=== PATIENT | female | born 1985 | race African-American/Black ===

== ENCOUNTER 2018-10-25 01:08 | Emergency (ER) | payer OTHER ==
[2018-10-25 01:36] VITALS: BMI 33.5
[2018-10-25 01:47] LABS: BASO % 1.3 % (0-2.0); EOS % 2.7 % (0-4.5); HEMATOCRIT 39.2 % (32.4-45.2); HEMOGLOBIN 12.3 GM/dL (10.7-15.3); LYMPH % 28.9 % (8-40); MCH 24.7 pg (25.7-33.7); MCHC 31.3 g/dl (32.0-36.0); MEAN PLT VOLUME 8.3 fl (7.5-11.1); MONO % 6.3 % (3.8-10.2); NEUT % 60.8 % (42.8-82.8); PLATELET COUNT 271 K/MM3 (134-434); RBC 4.97 M/mm3 (3.60-5.2); RDW 17.3 % (11.6-15.6); WHITE BLOOD COUNT 9.2 K/mm3 (4.0-10.0)
[2018-10-25 02:26] LABS: ALBUMIN 3.5 g/dl (3.4-5.0); ALK PHOS 120 U/L (45-117); ANION GAP 10 MMOL/L (8-16); BILIRUBIN,TOTAL 0.1 mg/dL (0.2-1); BLOOD UREA NITROGEN 13 mg/dL (7-18); CALCIUM 9.4 mg/dL (8.5-10.1); CHLORIDE 104 mmol/L (98-107); CO2 22 mmol/L (21-32); CREATININE 0.8 mg/dL (0.55-1.3); GLUCOSE,RANDOM 110 mg/dL (74-106); POTASSIUM 3.8 mmol/L (3.5-5.1); SGOT/AST 16 U/L (15-37); SGPT/ALT 18 U/L (13-61); SODIUM 137 mmol/L (136-145)
--- NOTE | 2018-10-25 02:32 | PDOC ---
History of Present Illness - General Chief Complaint: Pain Stated Complaint: 7 WEEKS ABD PAIN Time Seen by Provider: 10/25/18 01:20 - History of Present Illness Initial Comments: 10/25/18 02:26 last menstrual period August no official ultrasound this presents to the ED with 2 week history of diffuse abdominal discomfort. Patient went to her doctor's office last week but was unable to obtain an ultrasound and was told that if the pain worsens to come to the emergency department No fever no nausea no vomiting pain is intermittent comes and goes was worse this evening Is also having some mild vaginal spotting intermittent Past History - Past Medical History Allergies/Adverse Reactions: Allergies Allergy/AdvReac Type Severity Reaction Status Date / Time No Known Allergies Allergy Verified 08/30/16 20:51 Home Medications: Ambulatory Orders Hydrocodone/Ibuprofen [Vicoprofen 200-7.5 mg Tab] 1 each PO Q6H #12 tablet 09/25 Ibuprofen [Motrin -] 800 mg PO TID #30 tablet 10/27/15 Cephalexin [Keflex] 500 mg PO BID #20 capsule 05/24/16 Famotidine [Pepcid -] 20 mg PO DAILY #30 tablet 05/24/16 Acetaminophen W/ Codeine #3 [Tylenol # 3 -] 1 - 2 tab PO Q4H PRN #14 tablet MDD 8 08/18/16 Ketorolac Tromethamine [Toradol] 10 mg PO TID PRN #21 tablet 08/18/16 Anemia: Yes COPD: No CHF: No - Surgical History Orthopedic Surgery: Yes (right femur Aug 2014/tripped and fell) - Reproductive History Is Patient Now?: Yes (#): 5 Para: 2 - Immunization History Immunization Up to Date: Yes - Suicide/Smoking/Psychosocial Hx Smoking Status: No Smoking History: Never smoked Have you smoked in the past 12 months: No Number of Cigarettes Smoked Daily: 0 Information on smoking cessation initiated: No Hx Alcohol Use: No Drug/Substance Use Hx: No Substance Use Type: None Review of Systems - Review of Systems Comments:: 10/25/18 02:27 ROS: A complete review of 10 out of 10 review of systems is taken and is negative apart from what is previously mentioned below and in the HPI. *Physical Exam - Vital Signs Last Vital Signs Temp Pulse Resp BP Pulse Ox 98.3 F 83 16 121/83 100 10/25/18 01:20 10/25/18 01:20 10/25/18 01:20 10/25/18 01:20 10/25/18 01:20 - Physical Exam Comments: 10/25/18 02:27 Vitals: Triage Vital signs reviewed General Appearance: no acute distress, well nourished well developed, Head: Atraumatic, Neck: Supple;No Nucal rigidity Chest Wall: Nontender Cardiac: Regular rate and rhythym, no murmurs, no rubs, no gallops, Lungs: Clear to auscultation bilateral, good air movement bilaterally, Abdomen: Soft, non distended, normal bowel sounds, diffuse non localizing tenderness to palpation Genitourinary: Diffusely tender vaginal wall and cervix, some discharge white, culture sent Rectal: Exam deferred Extremities: Full range of motion to all extremities, no cyanosis, clubbing, or edema Skin: Warm and dry, no rashes or lesions, no rash, no petechiae Psych: normal mood, normal affect Moderate Sedation - Procedure Monitoring Vital Signs: Procedure Monitoring Vital Signs Temperature 98.3 F 10/25/18 01:20 Pulse Rate 83 10/25/18 01:20 Respiratory Rate 16 10/25/18 01:20 Blood Pressure 121/83 10/25/18 01:20 O2 Sat by Pulse Oximetry (%) 100 10/25/18 01:20 ED Treatment Course - LABORATORY CBC & Chemistry Diagram: 10/25/18 01:29 10/25/18 01:29 - ADDITIONAL ORDERS Additional order review: 10/25/18 01:29 RBC 4.97 MCV 79.0 L MCHC 31.3 L RDW 17.3 H MPV 8.3 Neutrophils % 60.8 Lymphocytes % 28.9 D Monocytes % 6.3 Eosinophils % 2.7 Basophils % 1.3 - RADIOLOGY Radiology Studies Ordered: Category Date Time Status TRANSVAGINAL ULTRASOUND US [US] Stat Ultrasound 10/25/18 01:21 Taken Medical Decision Making - Medical Decision Making 10/25/18 02:32 Abdominal discomfort with spotting concerning for ectopic patient sent to ultrasound stat labs pending Positive intrauterine on ultrasound Labs within normal limits Case discussed with NON [employer] doctor Sylvester Low suspicion for PID at this time given 2 weeks of intermittent symptomatology with no fever no white count differential diagnosis for patient's intermittent abdominal discomfort includes early ,, round ligament stretching, gas, constipation, We'll recommend short course of Tylenol Maalox and milk of magnesia Patient will follow up with [facility] NON [facility] clinic this week She'll return to the emergency department for any fever severe persistent abdominal pain or for any concerns Findings, the need for follow-up and strict return instructions discussed with patient. *DC/Admit/Observation/Transfer Diagnosis at time of Disposition: Abdominal pain Qualifiers: Abdominal location: lower abdomen, unspecified Qualified Code(s): R10.30 - Lower abdominal pain, unspecified - Discharge Dispostion Disposition: HOME Condition at time of disposition: Good Decision to Admit order: No - Referrals Schedule a call back: follow up cx results Referrals: Cecilia Phan MD [Staff Physician] - - Patient Instructions Printed Discharge Instructions: DI for Abdominal Pain -- Early Additional Instructions: Take [id number] Tylenol as directed on package. Take [id number] Maalox as directed on package. Take milk of magnesia as directed on package. Call tomorrow to follow-up with the [facility] clinic with Dr. Phan or one of the other providers. He will receive a phone call if there are any positive results two-year culture. Return to the emergency department immediately for any fever severe persistent abdominal pain or for any concerns. - Post Discharge Activity
[2018-10-25] MEDS ORDERED: MAG HYDROX/AL HYDROX/SIMETH 30 ML UNIT-DOSE CUP PO ONE (02:48)
[2018-10-25] MEDS ORDERED: ACETAMINOPHEN 650 MG/20.3 ML ORAL SOLUTION (CUPS) PO ONE (02:48)
[2018-10-25 03:05] LABS: URINE APPEARANCE CLEAR; URINE BILIRUBIN NEGATIVE (<2.0 mg/dL); URINE COLOR LTYELLOW; URINE GLUCOSE (UA) NEGATIVE (NEGATIVE); URINE KETONE NEGATIVE (NEGATIVE); URINE LEUK ESTERASE TRACE (NEGATIVE); URINE NITRITE NEGATIVE (NEGATIVE); URINE PROTEIN NEGATIVE (NEGATIVE); URINE UROBILINOGEN NEGATIVE mg/dL (0.2-1.0)
[2018-10-25 03:10] LABS: EPI CELLS RARE /HPF (FEW); URINE MUCUS RARE
[2018-10-25 04:06] VITALS: BP 126/78; PULSE 88; TEMP 98.6
== END 2018-10-25 04:06 | disposition home or self-care (01) ==
LOC: JER 01:08
DX: O26.891 Other specified pregnancy related conditions, first trimester (principal); R10.30 Lower abdominal pain, unspecified; Z3A.01 Less than 8 weeks gestation of pregnancy
CPT/HCPCS: 36415; 76830-TC; 80053; 81003; 81015; 84702; 85025; 86850; 86900; 86901; 87086; 87491; 87591; 87661; 99282-25

== ENCOUNTER 2018-10-28 07:44 | Emergency (ER) | payer OTHER ==
[2018-10-28 07:57] VITALS: BP 109/63; PULSE 96; TEMP 97.9; BMI 33.5
[2018-10-28] MEDS ORDERED: ACETAMINOPHEN 500 MG TABLET (FP) PO ONE (08:43)
[2018-10-28] MEDS ORDERED: ACETAMINOPHEN 500 MG TABLET (FP) ONE (08:43)
--- NOTE | 2018-10-28 08:52 | PDOC ---
History of Present Illness - General Chief Complaint: Pain Stated Complaint: DIFFICULTY WALKING LEFT LEG Time Seen by Provider: 10/28/18 08:15 History Source: Patient Exam Limitations: No Limitations - History of Present Illness Initial Comments: 10/28/18 08:50 Patient came in complaints of severe left buttock with radiating pain to posterior thigh. is 7 weeks with multiple pain issues including PCO S and abdominal pain. has been here 3 times with abdominal pain and has been told ovarian cysts causing increasing amount of pain with her developing . had onset of low back pain yesterday, was instructed by her PCP to sleep on the right side but woke up this morning with significant worsening and immobility due to the spasm. Denies painful urination , denies any vaginal bleeding or drainage, Patient denies fever, denies dysuria. bowels are working normally Severity: reports: moderate Pain Location: reports: back, other (left buttock) Past History - Travel Traveled outside of the country in the last 30 days: No Close contact w/someone who was outside of country & ill: No - Past Medical History Allergies/Adverse Reactions: Allergies Allergy/AdvReac Type Severity Reaction Status Date / Time No Known Allergies Allergy Verified 10/28/18 07:52 Home Medications: Ambulatory Orders Acetaminophen 1,000 mg PO Q6H PRN #30 tablet 10/28/18 Diazepam [Valium] 2 mg PO DAILY PRN #2 tablet MDD 2 10/28/18 Anemia: Yes COPD: No CHF: No - Surgical History Orthopedic Surgery: Yes (right femur Aug 2014/tripped and fell) - Reproductive History (#): 5 Para: 2 - Immunization History Immunization Up to Date: Yes - Suicide/Smoking/Psychosocial Hx Smoking Status: No Smoking History: Never smoked Have you smoked in the past 12 months: No Number of Cigarettes Smoked Daily: 0 Hx Alcohol Use: No Drug/Substance Use Hx: No Substance Use Type: None Review of Systems - Review of Systems Able to Perform ROS?: Yes Is the patient limited Spanish proficient: Yes Constitutional: Yes: Symptoms Reported, See HPI HEENTM: Yes: See HPI. No: Symptoms Reported Respiratory: Yes: See HPI. No: Symptoms reported, Cough Musculoskeletal: Yes: Symptoms Reported, See HPI, Back Pain, Joint Pain (left hip but is primarily muscular in nature, denies bone pain or any recent injury/ trauma however has developing seven-week ) Integumentary: Yes: See HPI. No: Symptoms Reported Neurological: Yes: See HPI. No: Symptoms reported, Headache, Numbness, Paresthesia All Other Systems: Reviewed and Negative *Physical Exam - Vital Signs Last Vital Signs Temp Pulse Resp BP Pulse Ox 97.9 F 96 H 17 109/63 90 L 10/28/18 07:52 10/28/18 07:52 10/28/18 07:52 10/28/18 07:52 10/28/18 07:52 - Physical Exam General Appearance: Yes: Nourished, Appropriately Dressed, Apparent Distress, Moderate Distress HEENT: positive: JAMEL, Normal ENT Inspection, TMs Normal, Pharynx Normal Neck: positive: Supple. negative: Tender, Lymphadenopathy (R), Lymphadenopathy (L) Respiratory/Chest: positive: Lungs Clear Gastrointestinal/Abdominal: positive: Tender, Soft Extremity: positive: Normal Capillary Refill, Normal Inspection. negative: Normal Range of Motion (to left leg but reproduce pain with deep palpation to mid left gluteal and puriform S area. Patient's body habitus is morbidly obese and difficult to palpate spasm due to clinical history can identify is probable muscular spasm and strain) Integumentary: positive: Normal Color. 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 NML intact, Fully Oriented, Alert, Normal Mood/ Affect, Normal Response, Motor Strength 5/5 Moderate Sedation - Procedure Monitoring Vital Signs: Procedure Monitoring Vital Signs Temperature 97.9 F 10/28/18 07:52 Pulse Rate 96 H 10/28/18 07:52 Respiratory Rate 17 10/28/18 07:52 Blood Pressure 109/63 10/28/18 07:52 O2 Sat by Pulse Oximetry (%) 90 L 10/28/18 07:52 ED Treatment Course - Medications Given in the ED: ED Medications Discontinued Medications Generic Name Dose Route Start Last Admin Trade Name Freq PRN Reason Stop Dose Admin Acetaminophen 1,000 mg 10/28/18 08:43 10/28/18 08:45 Tylenol - PO 10/28/18 08:44 1,000 mg ONCE ONE Administration Progress Note - Progress Note Progress Note: Muscle strain/spasm of the left gluteus/probable puriform illness. Due to patient's early reviewed need to avoid any medications if possible but as patient is in significant discomfort we will treat with 1 dose of 2 mg of Valium for antispasmodic purposes and encouraged to continue Tylenol for swelling and pain relief. Will follow up with [facility] *DC/Admit/Observation/Transfer Diagnosis at time of Disposition: Back muscle spasm - Discharge Dispostion Disposition: HOME Condition at time of disposition: Stable Decision to Admit order: No - Prescriptions Prescriptions: Acetaminophen 1,000 mg PO Q6H PRN #30 tablet PRN Reason: Pain Diazepam [Valium] 2 mg PO DAILY PRN #2 tablet MDD 2 PRN Reason: spasm - Referrals Referrals: Nabila Angeles [Primary Care Provider] - - Patient Instructions Printed Discharge Instructions: DI for Back Spasm Additional Instructions: Rest, no heavy lifting or exercise until pain is resolved Hot soaks to neck and low back as often as possible/hot showers No massage or therapy until spasm is gone Continue Tylenol 1 or 2 -500 mg tablets every 6 hours for the next 3 days then as needed for pain 8 hours as needed for spasm Use one 2 mg tablet of Valium for spasm, understanding whelming dizzy and sleepy , and if unavoidable - do not use to protect early If not significant improvement within 24 hours with medication and rest regime, followup with private physician for change in medications and /or therapy. - Post Discharge Activity Forms/Work/School Notes: Back to Work
== END 2018-10-28 08:54 | disposition home or self-care (01) ==
LOC: JERFT 07:44 → JER 07:44 → JERFT 08:54
DX: O26.891 Other specified pregnancy related conditions, first trimester (principal); O99.89 Other specified diseases and conditions complicating pregnancy, childbirth and the puerperium; M62.830 Muscle spasm of back; Z3A.01 Less than 8 weeks gestation of pregnancy
CPT/HCPCS: 99281-25

== ENCOUNTER 2018-11-07 13:25 | Emergency (ER) | payer OTHER ==
[2018-11-07 13:48] VITALS: BMI 34.3
[2018-11-07 14:28] LABS: BASO % 0.9 % (0-2.0); EOS % 2.7 % (0-4.5); HEMATOCRIT 35.3 % (32.4-45.2); LYMPH % 20.3 % (8-40); MCH 26.6 pg (25.7-33.7); MCHC 33.9 g/dl (32.0-36.0); MEAN CELL VOLUME 78.4 fl (80-96); MEAN PLT VOLUME 8.1 fl (7.5-11.1); MONO % 4.5 % (3.8-10.2); NEUT % 71.6 % (42.8-82.8); PLATELET COUNT 259 K/MM3 (134-434); RDW 17.6 % (11.6-15.6); WHITE BLOOD COUNT 8.6 K/mm3 (4.0-10.0)
[2018-11-07 15:06] LABS: ALBUMIN 3.4 g/dl (3.4-5.0); ALK PHOS 102 U/L (45-117); ANION GAP 8 MMOL/L (8-16); BILIRUBIN,TOTAL 0.2 mg/dL (0.2-1); BLOOD UREA NITROGEN 10 mg/dL (7-18); CALCIUM 9.2 mg/dL (8.5-10.1); CHLORIDE 104 mmol/L (98-107); CO2 24 mmol/L (21-32); CREATININE 0.5 mg/dL (0.55-1.3); GLUCOSE,RANDOM 91 mg/dL (74-106); POTASSIUM 3.7 mmol/L (3.5-5.1); SGOT/AST 16 U/L (15-37); SGPT/ALT 23 U/L (13-61); SODIUM 135 mmol/L (136-145); TOT PROT 7.6 g/dl (6.4-8.2)
--- NOTE | 2018-11-07 15:43 | PDOC ---
History of Present Illness - General History Source: Patient - History of Present Illness Timing/Duration: reports: other <MaoriDorothyLy - Last Filed: 11/07/18 16:45> <Hossein Wilkins - Last Filed: 11/10/18 09:42> - General Chief Complaint: Vaginal Bleeding Stated Complaint: BLEEDING, 10 WEEKS PREGNED Time Seen by Provider: 11/07/18 15:21 Past History - Past Medical History Anemia: Yes COPD: No CHF: No - Surgical History Orthopedic Surgery: Yes (right femur Aug 2014/tripped and fell) - Reproductive History (#): 5 Para: 2 - Immunization History Immunization Up to Date: Yes - Suicide/Smoking/Psychosocial Hx Smoking Status: No Smoking History: Unknown if ever smoked Have you smoked in the past 12 months: No Number of Cigarettes Smoked Daily: 0 Information on smoking cessation initiated: No Hx Alcohol Use: No Drug/Substance Use Hx: No Substance Use Type: None <MaoriKaylee - Last Filed: 11/07/18 16:45> <Hossein Wilkins - Last Filed: 11/10/18 09:42> - Past Medical History Allergies/Adverse Reactions: Allergies Allergy/AdvReac Type Severity Reaction Status Date / Time No Known Allergies Allergy Verified 11/07/18 13:42 Home Medications: Ambulatory Orders Nitrofurantoin Monohyd/M-Cryst [Macrobid -] 100 mg PO BID #14 capsule 11/07/18 No122/Iron/Folic Acid [ Multi Tablet] 1 each PO DAILY 11/07/18 Review of Systems - Review of Systems Constitutional: No: Chills, Fever ABD/GI: Yes: Abdominal cramping. No: Nausea, Vomiting : No: Dysuria <MaoriDorothyBaljeet - Last Filed: 11/07/18 16:45> *Physical Exam - Vital Signs Last Vital Signs Temp Pulse Resp BP Pulse Ox 98.1 F 66 18 102/66 100 11/07/18 13:43 11/07/18 13:43 11/07/18 13:43 11/07/18 13:43 11/07/18 13:43 - Physical Exam General Appearance: Yes: Appropriately Dressed. No: Apparent Distress HEENT: positive: Normal Voice Neck: positive: Supple Respiratory/Chest: negative: Respiratory Distress Gastrointestinal/Abdominal: positive: Soft. negative: Tender Musculoskeletal: negative: CVA Tenderness Integumentary: positive: Dry, Warm Neurologic: positive: Fully Oriented, Alert, Normal Mood/Affect <Dorothy GonzalesSierraJennifer - Last Filed: 11/07/18 16:45> - Vital Signs Last Vital Signs Temp Pulse Resp BP Pulse Ox 98.4 F 81 17 100/61 97 11/07/18 16:21 11/07/18 16:21 11/07/18 16:21 11/07/18 16:21 11/07/18 16:21 <Hossein Wilkins - Last Filed: 11/10/18 09:42> Moderate Sedation - Procedure Monitoring Vital Signs: Procedure Monitoring Vital Signs Temperature 98.1 F 11/07/18 13:43 Pulse Rate 66 11/07/18 13:43 Respiratory Rate 18 11/07/18 13:43 Blood Pressure 102/66 11/07/18 13:43 O2 Sat by Pulse Oximetry (%) 100 11/07/18 13:43 <MaoriDorothySierraJennifer - Last Filed: 11/07/18 16:45> - Procedure Monitoring Vital Signs: Procedure Monitoring Vital Signs Temperature 98.4 F 11/07/18 16:21 Pulse Rate 81 11/07/18 16:21 Respiratory Rate 17 11/07/18 16:21 Blood Pressure 100/61 11/07/18 16:21 O2 Sat by Pulse Oximetry (%) 97 11/07/18 16:21 <Hossein Wilkins - Last Filed: 11/10/18 09:42> ED Treatment Course - LABORATORY CBC & Chemistry Diagram: 11/07/18 14:17 11/07/18 14:17 - ADDITIONAL ORDERS Additional order review: Laboratory Results 11/07/18 11/07/18 14:17 14:17 Sodium 135 L Potassium 3.7 Chloride 104 Carbon Dioxide 24 Anion Gap 8 BUN 10 Creatinine 0.5 L Creat Clearance w eGFR > 60 Random Glucose 91 Calcium 9.2 Total Bilirubin 0.2 AST 16 ALT 23 Alkaline Phosphatase 102 Total Protein 7.6 Albumin 3.4 Beta HCG, Quant 493252.4 Blood Type AB POSITIVE Antibody Screen Negative 11/07/18 14:17 RBC 4.50 MCV 78.4 L MCHC 33.9 RDW 17.6 H MPV 8.1 Neutrophils % 71.6 Lymphocytes % 20.3 D Monocytes % 4.5 Eosinophils % 2.7 Basophils % 0.9 <Kaylee Gonzales - Last Filed: 11/07/18 16:45> - LABORATORY CBC & Chemistry Diagram: 11/07/18 14:17 11/07/18 14:17 - ADDITIONAL ORDERS Additional order review: 11/07/18 14:17 RBC 4.50 MCV 78.4 L MCHC 33.9 RDW 17.6 H MPV 8.1 Neutrophils % 71.6 Lymphocytes % 20.3 D Monocytes % 4.5 Eosinophils % 2.7 Basophils % 0.9 <Hossein Wilkins - Last Filed: 11/10/18 09:42> Medical Decision Making - Medical Decision Making 11/07/18 15:43 43- yo F, , (s/p 2 elec ABs), ~9 weeks preg, with vaginal spotting and mild abdominal cramping for the past 3 days. No clots, dysuria, n/v/f/c. Was seen in ED for same approximately 2 weeks ago. Beta was over 50,000 and US showed + IUP at 6 weeks with cardiac activity See exam 1st trimester bleed Beta >100K RH + on prior labs US w/ ~9 weeks IUP w/ FHR Pending UA Anticipate dc w/ OB f/c 11/07/18 16:34 11/07/18 16:45 UA w/ 3+ wbc. Ucx sent. Will start on abx and have pt f/u with her OB <Kaylee Gonzales - Last Filed: 11/07/18 16:45> - Medical Decision Making 11/10/18 09:42 The patient was seen and evaluated in conjunction with DAWN Gonzales under my direct supervision, ancillary studies were reviewed. I agree with the plan as outlined by DAWN Gonzales . <Hossein Wilkins - Last Filed: 11/10/18 09:42> *DC/Admit/Observation/Transfer <Kaylee Gonzales - Last Filed: 11/07/18 16:45> <Hossein Wilkins - Last Filed: 11/10/18 09:42> Diagnosis at time of Disposition: Threatened - Discharge Dispostion Disposition: HOME Condition at time of disposition: Good - Prescriptions Prescriptions: Nitrofurantoin Monohyd/M-Cryst [Macrobid -] 100 mg PO BID #14 capsule - Referrals Referrals: Laura Gonzales MD [Primary Care Provider] - - Patient Instructions Additional Instructions: Your labs were normal here. Beta today was over 100,000 vs over 50,000 on your visit here 10/27/2018. Your ultrasound today shows an intrauterine at 9 weeks with cardiac activity. Please rest for the next 2 days w/ no strenuous activity. If bleeding and/or pain worsens, return to ER Please follow-up with your OB this week - Post Discharge Activity Forms/Work/School Notes: Back to Work
[2018-11-07 16:22] VITALS: BP 100/61; PULSE 81; TEMP 98.4
[2018-11-07 16:25] LABS: URINE APPEARANCE CLOUDY; URINE BILIRUBIN NEGATIVE (<2.0 mg/dL); URINE COLOR AMBER; URINE GLUCOSE (UA) NEGATIVE (NEGATIVE); URINE KETONE NEGATIVE (NEGATIVE); URINE LEUK ESTERASE 3+ (NEGATIVE); URINE NITRITE NEGATIVE (NEGATIVE); URINE PROTEIN 1+ (NEGATIVE)
[2018-11-07 16:55] LABS: CALCIUM OXALATE CRYSTALS MANY /hpf (NONE SEEN); EPI CELLS MANY /HPF (FEW); URINE BACTERIA FEW /hpf (NONE SEEN); URINE MUCUS MANY
== END 2018-11-07 17:17 | disposition home or self-care (01) ==
LOC: JER 13:25
DX: O26.891 Other specified pregnancy related conditions, first trimester (principal); O20.0 Threatened abortion; Z3A.09 9 weeks gestation of pregnancy
CPT/HCPCS: 36415; 76815; 80053; 81003; 81015; 84702; 85025; 86850; 86900; 86901; 99282-25

== ENCOUNTER 2018-12-23 11:50 | Emergency (ER) | payer OTHER ==
[2018-12-23 12:03] VITALS: BP 123/68; PULSE 97; TEMP 98.1; BMI 34.7
--- NOTE | 2018-12-23 12:29 | PDOC ---
History of Present Illness - General Chief Complaint: Injury Stated Complaint: 16 WK PREG / FALL - History of Present Illness Initial Comments: 12/23/18 12:28 33 yo A2 female with PMH old right femur fx s/p repair presents 15 weeks s/p fall today on her abdomen. She states she was locked out of her apartment and had to break down the door to get back inside. She states she hit the door with her side but fell forward afterwards landing on her abdomen on the door. She called her OB who recommended coming in for evaluation and an US. She is currently endorsing some discomfort in the epigastric region and area below her breasts b/l. She also endorses some crampy suprapubic pain only when pressing on the area. Past History - Past Medical History Allergies/Adverse Reactions: Allergies Allergy/AdvReac Type Severity Reaction Status Date / Time No Known Allergies Allergy Verified 12/23/18 11:58 Home Medications: Ambulatory Orders Nitrofurantoin Monohyd/M-Cryst [Macrobid -] 100 mg PO BID #14 capsule 11/07/18 No122/Iron/Folic Acid [ Multi Tablet] 1 each PO DAILY 11/07/18 Anemia: Yes COPD: No CHF: No - Surgical History Orthopedic Surgery: Yes (right femur Aug 2014/tripped and fell) - Reproductive History (#): 5 Para: 2 - Immunization History Immunization Up to Date: Yes - Suicide/Smoking/Psychosocial Hx Smoking Status: No Smoking History: Never smoked Have you smoked in the past 12 months: No Number of Cigarettes Smoked Daily: 0 Hx Alcohol Use: No Drug/Substance Use Hx: No Substance Use Type: None Review of Systems - Review of Systems Constitutional: No: Chills, Fever HEENTM: No: Blurred Vision Respiratory: No: Cough Cardiac (ROS): No: Chest Pain, Syncope ABD/GI: No: Diarrhea, Nausea, Vomiting : No: Burning, Hematuria Musculoskeletal: Yes: Back Pain *Physical Exam - Vital Signs Last Vital Signs Temp Pulse Resp BP Pulse Ox 98.1 F 97 H 17 123/68 100 12/23/18 11:59 12/23/18 11:59 12/23/18 11:59 12/23/18 11:59 12/23/18 11:59 - Physical Exam Comments: 12/23/18 12:28 GEN: A&O, no acute distress HEENT: PERRL, EOMI NECK: Supple HEART: RRR, no murmurs noted LUNGS: CTA b/l ABDOMEN: Soft, tender in epigastric region and upper abdomen b/l as well as suprapubic region, Abdomen consistent with gestational age EXREMITIES: no peripheral edema or calf tenderness Moderate Sedation - Procedure Monitoring Vital Signs: Procedure Monitoring Vital Signs Temperature 98.1 F 12/23/18 11:59 Pulse Rate 97 H 12/23/18 11:59 Respiratory Rate 17 12/23/18 11:59 Blood Pressure 123/68 12/23/18 11:59 O2 Sat by Pulse Oximetry (%) 100 12/23/18 11:59 Medical Decision Making - Medical Decision Making 12/23/18 13:10 33 yo A2 female 15 weeks presents with abdominal pain following fall landing on her abdomen. She states her has been complicated by some bleeding and pain but all previous US and evaluations have been normal. Transabdominal US pending UA pending Will give Tylenol PO for pain control and reassess 12/23/18 15:07 US with no detected abnormalities. IUP 15 weeks 6 days, HR detected at 131. UA pending, if normal pt can be discharged with OB follow up. *DC/Admit/Observation/Transfer Diagnosis at time of Disposition: Abdominal pain - Discharge Dispostion Disposition: HOME Condition at time of disposition: Stable Decision to Admit order: No - Referrals Referrals: Laura Gonzales CNM [Certified Nurse [employer]] - - Patient Instructions Printed Discharge Instructions: How to Prevent Falls Additional Instructions: You were seen in the ER today following a fall. Since you are a Urine sample was sent and an ultrasound was done. Both were normal. The Ultrasound showed that you are about 15 weeks and 6 days and good heart rate. You should refrain from any excessive physical activity and attempt to prevent any further falls during your . You should follow up with your primary care or OB within 1 week of discharge from the hospital or sooner if you have any concerning symptoms. You can take Tylenol for any further pain as needed following the package dosing instructions - Post Discharge Activity
--- NOTE | 2018-12-23 12:41 | PDOC ---
Attending Attestation - Resident Resident Name: Kyle Austin - ED Attending Attestation I have performed the following: I have examined & evaluated the patient, The case was reviewed & discussed with the resident, I agree w/resident's findings & plan - HPI HPI: 12/23/18 14:07 The patient is a 33 year old 15 weeks female A2 (complicated ), with no significant past medical history, who presents to the emergency department s/p fall to the abdomen. As per patient, she accidentally locked herself out of the house this morning at which time she attempted to knock the door down using her shoulder subsequently falling forward onto her abdomen. She notes crampy pain when pressing onto her lower abdomen. She endorses calling her [employer] TECHNICIAN who advised her to report to the ED for further evaluation and ultrasound. She denies recent fevers, chills, headache or dizziness. She denies recent nausea, vomit, diarrhea or constipation. She denies recent dysuria, frequency, urgency or hematuria. She denies recent chest pain or shortness of breath. Allergies: NKDA - Physicial Exam PE: 12/23/18 15:51 GENERAL: Awake, alert, and fully oriented, in no acute distress HEAD: No signs of trauma EYES: PERRLA, EOMI, sclera anicteric, conjunctiva clear ENT: Auricles normal inspection, hearing grossly normal, nares patent, oropharynx clear without exudates. Moist mucosa NECK: Normal ROM, supple, no lymphadenopathy, JVD, or masses LUNGS: Breath sounds equal, clear to auscultation bilaterally. No wheezes, and no crackles HEART: Regular rate and rhythm, normal S1 and S2, no murmurs, rubs or gallops ABDOMEN: +Diffuse abdominal tenderness with deep palpation. Soft, normoactive bowel sounds. No guarding, no rebound. No masses EXTREMITIES: Normal range of motion, no edema. No clubbing or cyanosis. No cords, erythema, or tenderness NEUROLOGICAL: Cranial nerves II through XII grossly intact. Normal speech, normal gait SKIN: Warm, Dry, normal turgor, no rashes or lesions noted. <Trever Gotti - Last Filed: 12/23/18 15:51> - Medical Decision Making 12/23/18 15:37 Pt presents to the ED complaining of mild diffuse abdominal pain after falling and hitting her abdomen, without vaginal bleeding. She is 16 weeks . Given that she is in early second trimester, placental abruption is unlikely. US checked to evaluate the placenta and fetus and is normal. Will discharge home with follow up with her OB. <Amy Adams - Last Filed: 12/25/18 00:37> Attestations - Attestations 12/23/18 14:07 Documentation prepared by Trever Gotti, acting as medical science liaison for Amy Adams MD. <Trever Gotti - Last Filed: 12/23/18 15:51>
[2018-12-23] MEDS ORDERED: ACETAMINOPHEN 325 MG TABLET (FP) PO ONE (13:02)
[2018-12-23 15:22] LABS: URINE APPEARANCE SLCLOUDY; URINE BILIRUBIN NEGATIVE (<2.0 mg/dL); URINE COLOR YELLOW; URINE GLUCOSE (UA) 3+ (NEGATIVE); URINE KETONE NEGATIVE (NEGATIVE); URINE LEUK ESTERASE NEGATIVE (NEGATIVE); URINE NITRITE NEGATIVE (NEGATIVE); URINE PROTEIN NEGATIVE (NEGATIVE); URINE UROBILINOGEN NEGATIVE mg/dL (0.2-1.0)
== END 2018-12-23 15:50 | disposition home or self-care (01) ==
LOC: JER 11:50
DX: O26.892 Other specified pregnancy related conditions, second trimester (principal); Z3A.15 15 weeks gestation of pregnancy; R10.9 Unspecified abdominal pain; W18.39XA Other fall on same level, initial encounter; Y93.89 Activity, other specified; Y92.89 Other specified places as the place of occurrence of the external cause
CPT/HCPCS: 76815-TC; 81003; 99281-25

== ENCOUNTER 2019-01-06 15:04 | Emergency (ER) | payer OTHER ==
[2019-01-06 15:15] VITALS: BP 109/71; PULSE 79; TEMP 98.1; BMI 34.7
--- NOTE | 2019-01-06 17:30 | PDOC ---
History of Present Illness - General Chief Complaint: Lightheaded Stated Complaint: 18 W /DIZZINESS Time Seen by Provider: 01/06/19 17:23 - History of Present Illness Initial Comments: 01/06/19 17:25 33 yo A2, at 17w6d GA confrimed by [facility] (12/23/2018) who p/w lightheadedness. Patient reports waking up this AM fwith fluctuating "room spinning," sensation ( unable to characterize direction), and complaint of lightheadedness. Symptoms resolve and recur spontaneously. No triggers or alleviators. No other complaints. Patient denies LUCAS, vision change, palpitations, cough, wheezing, orthopena, PND , leg swelling/pain, N/V, F,C, CP, SOB, urinary complaints, hematuria, BPR, abdominal pain, diarrhea, constipation, vaginal bleeding/itching/burning/ discharge, weakness, sensory changes. PMHx: as noted above ROS: as noted SHx: Denies Etoh, IVDA, tobacco use Allergies: NKDA Past History - Past Medical History Allergies/Adverse Reactions: Allergies Allergy/AdvReac Type Severity Reaction Status Date / Time No Known Allergies Allergy Verified 01/06/19 15:11 Home Medications: Ambulatory Orders Nitrofurantoin Monohyd/M-Cryst [Macrobid -] 100 mg PO BID #14 capsule 11/07/18 No122/Iron/Folic Acid [ Multi Tablet] 1 each PO DAILY 11/07/18 Anemia: Yes COPD: No CHF: No - Surgical History Orthopedic Surgery: Yes (right femur Aug 2014/tripped and fell) - Reproductive History (#): 5 Para: 2 Therapeutic (s) & number: No Spontaneous : 0 - Immunization History Immunization Up to Date: Yes - Suicide/Smoking/Psychosocial Hx Smoking Status: No Smoking History: Never smoked Have you smoked in the past 12 months: No Number of Cigarettes Smoked Daily: 0 Hx Alcohol Use: No Drug/Substance Use Hx: No Substance Use Type: None Review of Systems - Review of Systems Comments:: 01/06/19 17:28 GENERAL/CONSTITUTIONAL: No fever or chills. No weakness. HEAD, EYES, EARS, NOSE AND THROAT: No change in vision. No ear pain or discharge. No sore throat. CARDIOVASCULAR: No chest pain or shortness of breath RESPIRATORY: No cough, wheezing, or hemoptysis. GASTROINTESTINAL: No nausea, vomiting, diarrhea or constipation. GENITOURINARY: No dysuria, frequency, or change in urination. MUSCULOSKELETAL: No joint or muscle swelling or pain. No neck or back pain. SKIN: No rash NEUROLOGIC:+ lightheadedness. No headache, vertigo, loss of consciousness, or change in strength/sensation. ENDOCRINE: No increased thirst. No abnormal weight change HEMATOLOGIC/LYMPHATIC: No anemia, easy bleeding, or history of blood clots. ALLERGIC/IMMUNOLOGIC: No hives or skin allergy. *Physical Exam - Vital Signs Last Vital Signs Temp Pulse Resp BP Pulse Ox 98.1 F 79 16 109/71 98 01/06/19 15:12 01/06/19 15:12 01/06/19 15:12 01/06/19 15:12 01/06/19 15:12 - Physical Exam Comments: 01/06/19 17:28 GENERAL: Awake, alert, and fully oriented, in no acute distress HEAD: No signs of trauma, normocephalic, atraumatic EYES: PERRLA, EOMI, sclera anicteric, conjunctiva clear ENT: Auricles normal inspection, hearing grossly normal, nares patent, oropharynx clear without exudates. Moist mucosa NECK: Normal ROM, supple, no lymphadenopathy, JVD, or masses LUNGS: No distress, speaks full sentences, clear to auscultation bilaterally HEART: Regular rate and rhythm, normal S1 and S2, no murmurs, rubs or gallops, peripheral pulses normal and equal bilaterally. ABDOMEN: Soft, nontender, normoactive bowel sounds. No guarding, no rebound. No masses EXTREMITIES : Normal inspection, Normal range of motion, no edema. No clubbing or cyanosis. NEUROLOGICAL: Cranial nerves II through XII grossly intact. Normal speech, normal gait, no focal sensorimotor deficits. Neg dysmetria on FTN. Nml VIKAS. absent nystagmus. SKIN: Warm, Dry, normal turgor, no rashes or lesions noted Moderate Sedation - Procedure Monitoring Vital Signs: Procedure Monitoring Vital Signs Temperature 98.1 F 01/06/19 15:12 Pulse Rate 79 01/06/19 15:12 Respiratory Rate 16 01/06/19 15:12 Blood Pressure 109/71 01/06/19 15:12 O2 Sat by Pulse Oximetry (%) 98 01/06/19 15:12 ED Treatment Course - LABORATORY CBC & Chemistry Diagram: 01/06/19 18:00 01/06/19 18:00 - RADIOLOGY Radiology Studies Ordered: 01/06/19 19:42 Tiffanie Serrano Name: JONA CHOW DEPARTMENT OF RADIOLOGY Phys: Carson Victor RESIDENT : 1985 Age: 33 Sex: F [facility] Acct: [id number] Loc: [address] Exam Date: 01/06/19 Status: [place] [id number] Unit Number: [id number] EXAM#: TYPE/EXAM: RESULT: [id number] US/ US(SINGLE) Obstetrical ultrasound Clinical information: abdominal pain The exam demonstrates a single viable intrauterine gestation with an averaged gestational age of 17 weeks 6 days. cardiac rate 146 BPM. Anterior placenta without obvious abruption. Amniotic fluid volume appears unremarkable on a qualitative basis. The partially visualized structures demonstrate no gross sonographic abnormality. The cervix appears to be closed with a 3.7 cm in length. No free intraperitoneal fluid is noted within the partially imaged lower pelvis. Impression: Single viable intrauterine gestation at approximately 17 weeks 6 days. No definite sonographic abnormality is identified. Reported By: Ken Robles MD 01/06/191926 Carson Victor Technologist: Rosalind Nelson Transcribed Date/Time: 01/06/191926 Video Game Developer: Ken Robles Printed Date/Time: By : Medical Decision Making - Medical Decision Making 01/06/19 17:28 33 yo A2, at 17w6d GA confrimed by [facility] (12/23/2018) who p/w lightheadedness. Vtials wnl, AF, A&Ox3. Physical exam unremarkable. absent neuro defitics on physical exam. Absent nystagmus. Will asses for viable IUP. Will assess for cardiac dysarrythmias, hypoglycemia, anemia, electrolyte abnml, metabolic and toxic derangements, acid-base disturbances, infection. Will provide PO fluid hydration and reassess. ED Course: 01/06/19 18:23 EKG: NSR with absent KARY, STD. Nml interval duration and axis. Nml R wave progression. Absent Q waves. 01/06/19 18:46 CBC: Unremarkable UA: Neg 01/06/19 18:52 CMP: Unremarkable 01/06/19 19:42 PREG U/S: Impression: Single viable intrauterine gestation at approximately 17 weeks 6 days. No definite sonographic abnormality is identified Stable for d/c with return precautions. 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 Please follow up with your primary care physician within 72 hours. - Post Discharge Activity - Attestations Physician Attestion: 01/06/19 17:29 I attest to the information provided in this note.
[2019-01-06 18:15] LABS: BASO % 0.5 % (0-2.0); EOS % 4.5 % (0-4.5); HEMATOCRIT 38.3 % (32.4-45.2); HEMOGLOBIN 12.7 GM/dL (10.7-15.3); LYMPH % 18.9 % (8-40); MCH 27.8 pg (25.7-33.7); MCHC 33.2 g/dl (32.0-36.0); MEAN CELL VOLUME 83.7 fl (80-96); MEAN PLT VOLUME 8.1 fl (7.5-11.1); MONO % 5.3 % (3.8-10.2); NEUT % 70.8 % (42.8-82.8); PLATELET COUNT 222 K/MM3 (134-434); RBC 4.57 M/mm3 (3.60-5.2); RDW 16.3 % (11.6-15.6); WHITE BLOOD COUNT 9.5 K/mm3 (4.0-10.0)
[2019-01-06 18:16] LABS: URINE APPEARANCE SLCLOUDY; URINE BILIRUBIN NEGATIVE (<2.0 mg/dL); URINE COLOR YELLOW; URINE GLUCOSE (UA) 1+ (NEGATIVE); URINE KETONE NEGATIVE (NEGATIVE); URINE LEUK ESTERASE NEGATIVE (NEGATIVE); URINE NITRITE NEGATIVE (NEGATIVE); URINE PROTEIN NEGATIVE (NEGATIVE); URINE UROBILINOGEN NEGATIVE mg/dL (0.2-1.0)
--- NOTE | 2019-01-06 18:37 | PDOC ---
Attending Attestation - Medical Decision Making EXAM#: TYPE/EXAM: RESULT: [id number] US/ US(SINGLE) Obstetrical ultrasound Impression: Single viable intrauterine gestation at approximately 17 weeks 6 days. No definite sonographic abnormality is identified. Reported By: Ken Robles MD 01/06/19 19:27 Documentation prepared by MASON Villareal, acting as biomedical photographer for Maty Padilla MD. 01/06/19 20:27 <Harriet Hager - Last Filed: 01/06/19 20:27> - Resident Resident Name: Carson Victor - ED Attending Attestation I have performed the following: I have examined & evaluated the patient, The case was reviewed & discussed with the resident, I agree w/resident's findings & plan, Exceptions are as noted - HPI HPI: 01/06/19 18:37 Ms ramires is a 33 yo A2, at 17w6d (confirmed by [facility]) who p/w lightheadedness. Pt awoke this morning with fluctuating vertigo, sensation ( unable to characterize direction), and complaint of lightheadedness. No triggers or alleviators. No other complaints. - Physicial Exam PE: 01/06/19 18:43 GENERAL: Awake, alert, and fully oriented, in no acute distress LUNGS: No distress, speaks full sentences, clear to auscultation bilaterally HEART: Regular rate and rhythm, normal S1 and S2, no murmurs, rubs or gallops, peripheral pulses normal and equal bilaterally. ABDOMEN: Soft, nontender, normoactive bowel sounds. EXTREMITIES : Normal inspection, Normal range of motion NEUROLOGICAL: Cranial nerves II through XII grossly intact. Normal speech, normal gait, no focal sensorimotor deficits. Neg dysmetria on FTN. No nystagmus. SKIN: Warm, Dry, normal turgor, no rashes or lesions noted - Medical Decision Making 01/06/19 18:37 33 yo F presenting with a complaint of vertigo which has since resolved Pt repeatedly asking to leave the ER Laboratory Tests 01/06/19 01/06/19 17:45 18:00 WBC 9.5 Hgb 12.7 Hct 38.3 Plt Count 222 Urine Blood Negative Urine Nitrite Negative Ur Leukocyte Esterase Negative US results above Pt was about to leave against medical advise US re assuring Pt can be discharged to home <Maty Padilla - Last Filed: 01/08/19 00:02>
[2019-01-06 18:47] LABS: ALBUMIN 2.8 g/dl (3.4-5.0); ALK PHOS 116 U/L (45-117); ANION GAP 6 MMOL/L (8-16); BILIRUBIN,TOTAL 0.1 mg/dL (0.2-1); BLOOD UREA NITROGEN 5 mg/dL (7-18); CHLORIDE 104 mmol/L (98-107); CO2 23 mmol/L (21-32); CREATININE 0.5 mg/dL (0.55-1.3); GLUCOSE,RANDOM 94 mg/dL (74-106); POTASSIUM 3.8 mmol/L (3.5-5.1); SGOT/AST 12 U/L (15-37); SGPT/ALT 15 U/L (13-61); SODIUM 134 mmol/L (136-145); TOT PROT 7.3 g/dl (6.4-8.2)
--- NOTE | 2019-01-07 13:15 | EKG ---
Test Reason : Blood Pressure : / mmHG Vent. Rate : 075 BPM Atrial Rate : 075 BPM P-R Int : 150 ms QRS Dur : 084 ms QT Int : 378 ms P-R-T Axes : 015 016 008 degrees QTc Int : 422 ms NORMAL SINUS RHYTHM WITH SINUS ARRHYTHMIA NORMAL ECG NO PREVIOUS ECGS AVAILABLE Confirmed by MD ELVIAR, STEPHY ([id number]) on 01/07/2019 1:14:39 PM Referred By: Confirmed By:STEPHY FELIX MD
== END 2019-01-06 20:45 | disposition home or self-care (01) ==
LOC: JER 15:04
DX: O26.892 Other specified pregnancy related conditions, second trimester (principal); R42 Dizziness and giddiness; O99.012 Anemia complicating pregnancy, second trimester; D64.9 Anemia, unspecified; Z3A.17 17 weeks gestation of pregnancy
CPT/HCPCS: 36415; 76801-TC; 80053; 81003; 84702; 85025; 93005; 93010; 99282-25

== ENCOUNTER 2019-06-07 07:50 | Inpatient (IN) | payer OTHER ==
[2019-06-07] MEDS ORDERED: DEXTROSE 5%-LACTATED RINGERS 1,000 ML IV SCH (08:45)
[2019-06-07 09:42] VITALS: BMI 40.1
[2019-06-07 09:52] LABS: BLOOD UREA NITROGEN 3.8 mg/dL (7-18); CALCIUM 8.9 mg/dL (8.5-10.1); CREATININE 0.6 mg/dL (0.55-1.3); POTASSIUM 4.1 mmol/L (3.5-5.1)
[2019-06-07 09:57] LABS: INR 0.91 (0.83-1.09); PROTHROMBIN TIME (PATIENT) 10.7 SEC (9.7-13.0)
[2019-06-07 09:59] LABS: ACTIVATED PTT 27.9 SECONDS (25.2-36.5)
--- NOTE | 2019-06-07 10:07 | HP ---
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: Alzheimer's, CVA, Dementia, Migraine, Multiple Sclerosis, Peripheral Neuropathy, Parkinson's, Seizure, Syncope, TIA, Vertigo, Other Cardiovascular: No: AFIB, Aneurysm, Aortic Insufficiency, Aortic Stenosis, CAD, CHF, Deep Vein Thrombosis, HTN, Hyperlipdemia, [place], Mitral Insufficiency, Mitral Stenosis, Murmur, Pulmonary Hypertension, Other Pulmonary: No: Asthma, Bronchitis, Cancer, COPD, O2 Dependent, Pneumonia, Previously Intubated, Pulmonary Embolus, Pulmonary Fibrosis, Sleep Apnea, Other Gastrointestinal: No: Ascites, Cancer, Constipation, Crohn's Disease, Diverticulitis, Diverticulosis, Esophageal Varices, Gastritis, GERD, GI Bleed, Hemorrhoids, Hiatal Hernia, Inflamatory Bowel Disease, Irritable Bowel Disease, Pancreatitis, Peptic Ulcer Disease, Ulcerative Colitis, Other Hepatobiliary: No: Cirrhosis, Cholelithiasis, Cholecystitis, Choledocholithiasis , Hepatitis A, Hepatitis B, Hepatitis C, Other Renal/: No: Renal Failure, Renal Inusuff, BPH, Cancer, Hematuria, Hemodialysis , Neurogenic Bladder, Renal Calculi, UTI, Other Reproductive: No: Ectopic , Endometriosis, Fibroids, PID, Polycystic Ovary Syndrome, Postmenopausal, Other ...: 5 ...Para: 2 ...Term: 2 ...: 0 ...Spon : 0 ...Induced : 2 ...Multiple Gestation: 0 ...LMP: 09/05/18 ... Weeks Gestation by Dates: 39.2 ...EDC by Dates: 06/12/19 ...EDC by Sono: 06/12/19 Heme/Onc: No: Anemia, B12 Deficiency, Bleeding Disorder, Cancer, Current Chemotherapy, Current Radiation Therapy, Hemochromatosis, Hypercoaguable State, Myeloproliferative Synd, Sickle Cell Disease, Sickle Cell Trait, Thrombocytopenia, Other Infectious Disease: No: AIDS, C-Diff, Herpes Zoster, HIV, MRSA, STD's, Tuberculosis, VREF, Other Psych: No: Addictions, Anxiety, Bipolar, Depression, Panic, Psychosis, Schizophrenia, Other Musculoskeletal: No: Bursitis, Chronic low back pain, Hemiparesis, Hemiplegia, Osteoarthritis, Paraplegia, Other Rheumatology: No: Fibromyalgia, Gout, Lupus, Rheumatoid Arthritis, Sarcoidosis, Vasculitis, Other ENT: No: Allergic Rhinitis, Sinusitis, Other Dermatology: No: Basal Cell, Cellulitis, Eczema, Melanoma, Psoriasis, Squamous Cell, Other - Past Surgical History Hx Myomectomy: No Hx Transabdominal Cerclage: No Additional Surgical History: right femur repair with metal plates in 2014 - Smoking History Smoking history: Never smoked Have you smoked in the past 12 months: No Aproximately how many cigarettes per day: 0 - Alcohol/Substance Use Hx Alcohol Use: No History of Substance Use: reports: None - Social History History of Recent Travel: No Home Medications - Allergies Allergies/Adverse Reactions: Allergies Allergy/AdvReac Type Severity Reaction Status Date / Time lactose Allergy Intermediate Verified 05/23/19 11:50 No Known Drug Allergies Allergy Verified 05/23/19 11:50 ACKEE Allergy Intermediate Hives Uncoded 05/23/19 11:50 - Home Medications Home Medications: Ambulatory Orders No122/Iron/Folic Acid [ Multi Tablet] 1 each PO DAILY 11/07/18 Ferrous Sulfate [Feosol] 325 mg PO DAILY 02/15/19 Ibuprofen 400 mg PO PRN PRN 02/15/19 Family Disease History - Family Disease History Family Disease History: Diabetes: Mother (HTN), Brother Review of Systems - Review of Systems Constitutional: reports: No Symptoms Eyes: reports: No Symptoms HENT: reports: No Symptoms Neck: reports: No Symptoms Cardiovascular: reports: No Symptoms Respiratory: reports: No Symptoms, Cough (she reports a mild cold) Gastrointestinal: reports: No Symptoms Genitourinary: reports: No Symptoms Breasts: reports: No Symptoms Reported Musculoskeletal: reports: No Symptoms Integumentary: reports: No Symptoms Neurological: reports: No Symptoms Endocrine: reports: No Symptoms, Unexplained Weight Gain Psychiatric: reports: No Symptoms Physical Exam - Maternity Vital Signs: Vital Signs Temperature 98.1 F 06/07/19 09:22 Pulse Rate 81 06/07/19 09:22 Respiratory Rate 20 06/07/19 09:22 Blood Pressure 107/70 06/07/19 09:22 O2 Sat by Pulse Oximetry (%) Constitutional: Yes: No Distress HENT: Yes: Atraumatic Neck: Yes: Supple Cardiovascular: Yes: Regular Rate and Rhythm Breast(s): Yes: Other (deferred) - Abdominal Exam/OB Contractions: No Regularity: Irritability Monitor Mode: External Category: I Accelerations: Uniform Decelerations: None - Vaginal Exam/OB Vaginal Bleediing: No Speculum Exam: No Dilatation (cm): 0.5 Effacement (%): 20 Presentation: Vertex/Position (bedside sono confirmed, OP) Station: -3 - Physical Exam Musculoskeletal: Yes: WNL Extremities: Yes: WNL - Labs Lab Results: CBC, BMP 06/07/19 08:34 Imaging - Results Ultrasound: Report Reviewed Assessment/Plan 34 y/o @ 39.2wks, elective induction of labor, GBS negative, AMA and negative testing, +GDS and negative GTT. Patient was counseled regarding IOL, its risks and complications. All questions answered and informed consent obtained. Proceed with induction
--- NOTE | 2019-06-07 10:44 | PN ---
Progress Note (short form) - Note Progress Note: Cervical balloon placed with 60ml of NS. Patient tolerated the procedure well and pitocin will be initiated.
[2019-06-07] MEDS ORDERED: ELECTROLYTE-148 SOLN 1,000 ML IV SCH (10:45)
[2019-06-07 10:56] LABS: BASO % 0.4 % (0-2.0)
[2019-06-07] MEDS ORDERED: OXYTOCIN 30 UNITS in 0.9% NS 30 UNIT/500 ML INFUS.BAG IVPB SCH (11:00)
[2019-06-07] MEDS ORDERED: OXYTOCIN 30 UNITS in 0.9% NS 30 UNIT/500 ML INFUS.BAG IVPB ONE (11:29)
[2019-06-07 11:47] LABS: EOS % 2.3 % (0-4.5); HEMATOCRIT 36.9 % (32.4-45.2); HEMOGLOBIN 12.3 GM/dL (10.7-15.3); LYMPH % 19.3 % (8-40); MCH 28.3 pg (25.7-33.7); MCHC 33.2 g/dl (32.0-36.0); MEAN CELL VOLUME 85.3 fl (80-96); MEAN PLT VOLUME 9.5 fl (7.5-11.1); MONO % 7.3 % (3.8-10.2); NEUT % 70.7 % (42.8-82.8); PLATELET COUNT 179 K/MM3 (134-434); RBC 4.33 M/mm3 (3.60-5.2); RDW 13.4 % (11.6-15.6); WHITE BLOOD COUNT 7.7 K/mm3 (4.0-10.0)
--- NOTE | 2019-06-07 13:24 | PN ---
Progress Note, Labor Vaginal Exam #1 Labor Exam Date: 06/07/19 Labor Exam Time: 13:23 Heart Rate (range): Cat I Dilatation: 4-5 Effacement (%): 70 Amniotic Membrane Status: Ruptured Presentation: Vertex/Position Station: -3 Remarks: Pt getting more uncomfortable Kim bulb out AROM, clears Epidural prn Anticipate Deondre Phan MD
[2019-06-07] MEDS ORDERED: FENTANYL/BUPIVACAINE/NS/PF - PCEA - 50 ML DISP.SYRIN EP ONE (13:28)
[2019-06-07] MEDS ORDERED: NALOXONE HCL 0.4 MG/ML VIAL IVPUSH PRN (13:54)
[2019-06-07] MEDS: FENTANYL/BUPIVACAINE/NS/PF - PCEA - 50 ML DISP.SYRIN EP SCH (14:30)
--- NOTE | 2019-06-07 16:22 | PN ---
Progress Note, Labor Vaginal Exam #2 Labor Exam Date: 06/07/19 Labor Exam Time: 16:21 Heart Rate (range): Cat I Dilatation: 7-8 Effacement (%): 90 Amniotic Membrane Status: Ruptured Presentation: Vertex/Position Station: -2 Remarks: Pt now more comfortable Continue pitocin Anticipate Mohsen Phan MD
--- NOTE | 2019-06-07 17:24 | PN ---
Progress Note, Labor Vaginal Exam #3 Labor Exam Date: 06/07/19 Labor Exam Time: 17:24 Heart Rate (range): Cat I Dilatation: AL Effacement (%): 100 Presentation: Vertex/Position Station: 0 Remarks: Feeling increased LOF Will start pushing soon Anticipate Deondre Phan MD
[2019-06-07] MEDS ORDERED: OXYTOCIN 20 UNITS in 0.9% NS 20 UNIT/1,000 ML INFUS.BAG IV ONE (17:30)
[2019-06-07] MEDS ORDERED: LIDOCAINE HCL 1% PRESERVATIVE FREE - 30ML VIAL ONE (18:19)
[2019-06-07] MEDS ORDERED: BENZOCAINE 20% 57 GM BOTTLE TP PRN (18:40)
[2019-06-07] MEDS ORDERED: WITCH HAZEL 50% (TUCKS) 40 PAD/JAR PAD TP PRN (18:40)
[2019-06-07] MEDS ORDERED: METHYLERGONOVINE MALEATE 0.2 MG/1 ML AMP IM PRN (18:40)
[2019-06-07] MEDS ORDERED: BISACODYL 10 MG SUPP.RECT RC PRN (18:40)
[2019-06-07] MEDS ORDERED: BENZOCAINE 28 GM HEMORRHOIDAL OINTMENT TP PRN (18:40)
--- NOTE | 2019-06-07 18:40 | PN ---
Delivery - Delivery Vaginal Delivery: Spontaneous Type of Anesthesia: Epidural Episiotomy/Laceration: Midline, 1st degree EBL (cc): 250 Delivery, Single - Stages of Labor Placenta: Yes: Spontaneous - Condition of Senior Advisory/Hand Heel Seat Fitter Present: No Gender: Male Position: Left, OA - Feeding Plan Initial Plan: Elected not to breastfeed exclusively throughout hospitalization Remarks - Remarks Remarks: of VMI from SONU position. No nuchal. No meconium. Epidural anesthesia. 39 week gestation. Spontaneous delivery of anterior shoulder and remaining body. Cord clamped and cut. Infant handed off to nursing staff. Weight pending. Apgars 6/8. Spontaneous delivery of intact placenta with 3VC. Perineum inspected, first degree laceration repaired with 3-0 vicryl after 5cc of 1% lidocaine injected. Hemostasis checked. Fundus firm. EBL 250. Mother and baby doing well. Cecilia Phan MD
[2019-06-07] MEDS ORDERED: OXYTOCIN 20 UNITS in 0.9% NS 20 UNIT/1,000 ML INFUS.BAG IV SCH (18:45)
[2019-06-07] MEDS ORDERED: ACETAMINOPHEN 325 MG TABLET (FP) ONE (19:56)
[2019-06-07] MEDS: ACETAMINOPHEN 325 MG TABLET (FP) PO PRN (20:05)
--- NOTE | 2019-06-08 06:27 | PN ---
Post Progress Note - Subjective Subjective: Pain controlled. . No fevers/chills Post Day: 1 Type of Delivery: Vital Signs: Vital Signs Temperature 97.9 F 06/08/19 02:00 Pulse Rate 73 06/08/19 02:00 Respiratory Rate 18 06/08/19 02:00 Blood Pressure 103/65 06/08/19 02:00 O2 Sat by Pulse Oximetry (%) 100 06/07/19 18:45 Breast Exam: No: Soft, Engorged, Cracked Nipples, Other Uterus: Yes: Fundus below umbilicus. No: Fundus Firm, Fundus above umbilicus, Fundus @ umbilicus, Non-tender, Other Incision: No: Dressing dry and intact, Baldemar intact, Sutures intact, Redness, Oozing, Other Abdomen/GI: Yes: Abdomen soft, Passing flatus, Tolerating PO Lochia: Yes: Rubra Lochia, amount: Small Extremities: Yes: Calves non-tender Perineum: Yes: Laceration Activity: Ambulating - Labs Labs: CBC WBC 7.7 K/mm3 (4.0-10.0) 06/07/19 08:36 RBC 4.33 M/mm3 (3.60-5.2) 06/07/19 08:36 Hgb 12.3 GM/dL (10.7-15.3) 06/07/19 08:36 Hct 36.9 % (32.4-45.2) 06/07/19 08:36 MCV 85.3 fl (80-96) 06/07/19 08:36 MCH 28.3 pg (25.7-33.7) 06/07/19 08:36 MCHC 33.2 g/dl (32.0-36.0) 06/07/19 08:36 RDW 13.4 % (11.6-15.6) 06/07/19 08:36 Plt Count 179 K/MM3 (134-434) 06/07/19 08:36 MPV 9.5 fl (7.5-11.1) D 06/07/19 08:36 Absolute Neuts (auto) 5.4 K/mm3 (1.5-8.0) 06/07/19 08:36 Neutrophils % 70.7 % (42.8-82.8) 06/07/19 08:36 Lymphocytes % 19.3 % (8-40) 06/07/19 08:36 Monocytes % 7.3 % (3.8-10.2) 06/07/19 08:36 Eosinophils % 2.3 % (0-4.5) 06/07/19 08:36 Basophils % 0.4 % (0-2.0) 06/07/19 08:36 Nucleated RBC % 0 % (0-0) 06/07/19 08:36 Assessment/Plan 34yo s/p , PPD#1 Routine PP care OOB, ambulate Labs pending D/C to home PPD#2 Deondre Phan MD
[2019-06-08] MEDS: ACETAMINOPHEN 325 MG TABLET (FP) PO PRN ×5 (06:44→21:13)
[2019-06-08] MEDS: PRENATAL VITAMINS W/ FOLIC ACID TABLET (FP) PO SCH (09:31)
[2019-06-08 09:34] LABS: BASO % 0.2 % (0-2.0); HEMATOCRIT 35.5 % (32.4-45.2); HEMOGLOBIN 11.4 GM/dL (10.7-15.3); LYMPH % 9.2 % (8-40); MCH 27.7 pg (25.7-33.7); MCHC 32.2 g/dl (32.0-36.0); MEAN CELL VOLUME 85.9 fl (80-96); MEAN PLT VOLUME 9.2 fl (7.5-11.1); MONO % 4.3 % (3.8-10.2); NEUT % 85.3 % (42.8-82.8); PLATELET COUNT 148 K/MM3 (134-434); RBC 4.13 M/mm3 (3.60-5.2); RDW 13.7 % (11.6-15.6); WHITE BLOOD COUNT 16.9 K/mm3 (4.0-10.0)
[2019-06-08] MEDS: IBUPROFEN 600 MG TABLET (FP) PO PRN ×4 (11:07→21:14)
[2019-06-08] MEDS ORDERED: SENNOSIDES/DOCUSATE COMBO (SENNA PLUS) TABLET (UD) PO PRN (22:00)
[2019-06-09] MEDS: IBUPROFEN 600 MG TABLET (FP) PO PRN ×3 (03:58→15:56)
[2019-06-09] MEDS: ACETAMINOPHEN 325 MG TABLET (FP) PO PRN ×3 (03:59→15:57)
--- NOTE | 2019-06-09 06:54 | DS ---
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: Vital Signs Temperature 98.6 F 06/08/19 22:00 Pulse Rate 85 06/08/19 22:00 Respiratory Rate 18 06/08/19 22:00 Blood Pressure 138/81 06/08/19 22:00 O2 Sat by Pulse Oximetry (%) 100 06/07/19 18:45 Constitutional: Yes: Well Nourished, No Distress, Calm Eyes: Yes: WNL, Conjunctiva Clear, EOM Intact HENT: Yes: WNL, Atraumatic, Normocephalic Neck: Yes: WNL, Supple, Trachea Midline Cardiovascular: Yes: WNL, Regular Rate and Rhythm Respiratory: Yes: WNL, Regular, CTA Bilaterally Gastrointestinal: Yes: WNL ...Rectal Exam: Yes: WNL Renal/: Yes: WNL ....Post : Yes: Uterus firm, Uterus non-tender, Slight lochia rubra Breast(s): Yes: WNL Musculoskeletal: Yes: WNL Extremities: Yes: WNL Edema: No Integumentary: Yes: WNL Neurological: Yes: WNL, Alert, Oriented ...Motor Strength: WNL Psychiatric: Yes: WNL, Alert, Oriented Labs: CBC, BMP 06/08/19 09:08 06/07/19 08:34 Delivery - Delivery Vaginal Delivery: Spontaneous Type of Anesthesia: Epidural Episiotomy/Laceration: Midline, 1st degree EBL (cc): 250 Delivery, Single - Stages of Labor Date 1st Stage Initiatied: 06/07/19 Time 1st Stage Initiated: 12:15 Date 2nd Stage Initiated: 06/07/19 Time 2nd Stage Initiated: 17:45 Date of Delivery: 06/07/19 Time of Delivery: 18:21 Time Placenta Delivered: 18:23 Placenta: Yes: Spontaneous - Condition of Investment Sales Assistant/Pharmaceutical Officer Present: No Gender: Male Weight: 7 lb 11 oz Position: Left, OA Total Hours ROM (Hrs/Mins): 5h - 1 Minute Total Score: 6 5 Minutes Total Score: 8 - Feeding Plan Initial Plan: Elected not to breastfeed exclusively throughout hospitalization Discharge Summary Reason For Visit: INDUCTION OF LABOR Procedures: Principal: Hospital Course: no complication Condition: Stable - Instructions Diet, Activity, Other Instructions: Regular Diet Follow up in 4-6 weeks for your visit with Dr. Phan Referrals: Cecilia Phan MD [Staff Physician] - Disposition: HOME - Home Medications Comprehensive Discharge Medication List: Ambulatory Orders No122/Iron/Folic Acid [ Multi Tablet] 1 each PO DAILY 11/07/18 Ferrous Sulfate [Feosol] 325 mg PO DAILY 02/15/19 Ibuprofen 400 mg PO PRN PRN 02/15/19 Diphenhydramine HCl [Benadryl Capsule -] 25 cap PO DAILY 06/07/19 Ibuprofen 600 mg PO Q6H PRN #30 tablet 06/08/19
[2019-06-09] MEDS: FENTANYL/BUPIVACAINE/NS/PF - PCEA - 50 ML DISP.SYRIN EP SCH (07:13)
[2019-06-09] MEDS: PRENATAL VITAMINS W/ FOLIC ACID TABLET (FP) PO SCH (09:46)
[2019-06-09 11:27] VITALS: BP 130/73; PULSE 93; TEMP 98.5
== END 2019-06-09 19:00 | disposition home or self-care (01) | DRG 560 ==
LOC: JLDR 07:50 → J3W 20:55
PROVIDERS: ADMIT Obstetrics & Gynecology; ATTEND Obstetrics & Gynecology
PROC: 0HQ9XZZ Repair Perineum Skin, External Approach (ICD-10-PCS; principal; 2019-06-07)
PROC: 10E0XZZ Delivery of Products of Conception, External Approach (ICD-10-PCS; 2019-06-07)
DX: O70.0 First degree perineal laceration during delivery (principal); Z3A.39 39 weeks gestation of pregnancy; Z37.0 Single live birth
CPT/HCPCS: 36415; 59409; 80048; 85025; 85610; 85730; 86593; 86850; 86900; 86901

== ENCOUNTER 2021-05-28 21:08 | Emergency (ER) | payer OTHER ==
[2021-05-28 21:30] VITALS: BMI 34.3
[2021-05-28] MEDS ORDERED: SODIUM CHLORIDE 0.9% 500 ML INFUS.BAG IV ONE (22:03)
[2021-05-28] MEDS ORDERED: ACETAMINOPHEN 1000 MG/100 ML VIAL (NON FORMULARY) IVPB ONE (22:03)
[2021-05-28] MEDS ORDERED: ACETAMINOPHEN INJECTION 100 ML IVPB ONE (22:08)
[2021-05-28 22:28] LABS: VENOUS BASE EXCESS 1.3 mmol/L (-2-2); VENOUS O2 SATURATION 65.5 % (70-80); VENOUS PCO2 40.3 mmHg (38-52); VENOUS PH 7.424 (7.310-7.410)
[2021-05-28 22:29] LABS: BASO % 0.4 % (0-2.0); HEMATOCRIT 31.2 % (32.4-45.2); HEMOGLOBIN 10.2 GM/dL (10.7-15.3); LYMPH % 20.9 % (8-40); MCH 23.8 pg (25.7-33.7); MCHC 32.8 g/dl (32.0-36.0); MEAN CELL VOLUME 72.4 fl (80-96); MEAN PLT VOLUME 8.1 fl (7.5-11.1); NEUT % 72.7 % (42.8-82.8); PLATELET COUNT 284 10^3/uL (134-434); RBC 4.31 M/mm3 (3.60-5.2); RDW 17.5 % (11.6-15.6); WHITE BLOOD COUNT 4.2 K/mm3 (4.0-10.0)
[2021-05-28 22:38] LABS: INR 1.1 (0.83-1.09); PROTHROMBIN TIME (PATIENT) 13.3 SEC (9.7-13.0)
[2021-05-28 22:40] LABS: ACTIVATED PTT 30.3 SECONDS (25.2-36.5)
[2021-05-28 22:47] LABS: CHLORIDE 106 mmol/L (98-107); SODIUM 134 mmol/L (136-145)
[2021-05-28 22:49] LABS: CALCIUM 7.9 mg/dL (8.5-10.1)
[2021-05-28 22:50] LABS: CO2 23 mmol/L (21-32); GLUCOSE,RANDOM 136 mg/dL (74-106)
[2021-05-28 22:53] LABS: CREATININE 0.8 mg/dL (0.55-1.3); SGOT/AST 43 U/L (15-37); SGPT/ALT 22 U/L (13-61)
[2021-05-28 22:55] LABS: BILIRUBIN,TOTAL 0.2 mg/dL (0.2-1); TOT PROT 7.5 g/dl (6.4-8.2)
[2021-05-28 22:56] LABS: ALK PHOS 99 U/L (45-117)
[2021-05-28 23:29] LABS: ANION GAP 6 MMOL/L (8-16)
[2021-05-28 23:31] LABS: URINE APPEARANCE CLOUDY; URINE BILIRUBIN NEGATIVE (NEGATIVE); URINE COLOR RED; URINE GLUCOSE (UA) NEGATIVE (NEGATIVE); URINE PROTEIN 3+ (NEGATIVE)
[2021-05-29 00:02] LABS: URINE RBC >100 /uL (0-23.9)
[2021-05-29 00:03] LABS: EPI CELLS 0 /uL (0-25.1); URINE WBC 0 /uL (0-25.8)
[2021-05-29 00:06] LABS: HYALINE CASTS 0 /uL (0-3.1); URINE BACTERIA 0 /uL (0-1359)
[2021-05-29 00:12] LABS: CALCIUM 7.4 mg/dL (8.5-10.1)
[2021-05-29 00:16] LABS: CREATININE 0.8 mg/dL (0.55-1.3)
[2021-05-29 02:00] VITALS: BP 111/67; PULSE 77; TEMP 98.7
== END 2021-05-29 02:02 | disposition home or self-care (01) ==
LOC: JER 21:08
PROC: 3E033NZ Introduction of Analgesics, Hypnotics, Sedatives into Peripheral Vein, Percutaneous Approach (ICD-10-PCS; principal; 2021-05-28)
DX: U07.1 COVID-19 (principal)
CPT/HCPCS: 36415; 71045-TC-FY; 74177-TC; 80048; 80053; 81003; 82550; 82553; 82803; 83605; 84484; 85025; 85610; 85730; 87040; 87086; 87186; 87804; 93005; 93010; 99285-25; C9803; J0131; U0003; U0005

== ENCOUNTER 2021-05-29 13:07 | Inpatient (IN) | payer OTHER ==
[2021-05-29 13:32] VITALS: BMI 34.3
[2021-05-29] MEDS ORDERED: CASIRIVIMAB (REGN10933) 600 MG, IMDEVIMAB (REGN10987) 600 MG in SODIUM CHLORIDE 100 ML IVPB ONE (14:11)
[2021-05-29] MEDS ORDERED: MAG HYDROX/AL HYDROX/SIMETH -MYLANTA- ORAL SUSPENSION PO ONE (17:00)
[2021-05-29] MEDS ORDERED: MAG HYDROX/AL HYDROX/SIMETH 30 ML UNIT-DOSE CUP ONE (17:08)
[2021-05-29 17:16] LABS: BASO % 0.5 % (0-2.0); EOS % 0.9 % (0-4.5); HEMATOCRIT 30.4 % (32.4-45.2); HEMOGLOBIN 9.8 GM/dL (10.7-15.3); LYMPH % 26.1 % (8-40); MCH 23.6 pg (25.7-33.7); MCHC 32.3 g/dl (32.0-36.0); MEAN CELL VOLUME 73.1 fl (80-96); MEAN PLT VOLUME 7.6 fl (7.5-11.1); MONO % 5.7 % (3.8-10.2); NEUT % 66.8 % (42.8-82.8); PLATELET COUNT 274 10^3/uL (134-434); RBC 4.16 M/mm3 (3.60-5.2); RDW 17.6 % (11.6-15.6); WHITE BLOOD COUNT 3.7 K/mm3 (4.0-10.0)
[2021-05-29 17:39] LABS: BLOOD UREA NITROGEN 4.4 mg/dL (7-18); CALCIUM 8.1 mg/dL (8.5-10.1)
[2021-05-29 17:42] LABS: CREATININE 0.7 mg/dL (0.55-1.3)
[2021-05-29 17:44] LABS: BILIRUBIN,TOTAL 0.1 mg/dL (0.2-1); TOT PROT 7.2 g/dl (6.4-8.2)
[2021-05-29] MEDS ORDERED: VANCOMYCIN 1 GM in D5W (PRE-DOCKED) 1,000 MG/250 ML IVPB ONE (18:03)
[2021-05-29] MEDS ORDERED: PIPERACILLIN/TAZOB 4.5 GM 4.5 GM in DEXTROSE 5%-WATER 100 ML IVPB ONE (18:03)
[2021-05-29] MEDS ORDERED: ONDANSETRON 4 MG/2 ML VIAL IVPUSH PRN (18:19)
[2021-05-29] MEDS ORDERED: PIPERACILLIN/TAZOB 4.5 GM 4.5 GM/100 ML BAG IVPB ONE (18:20)
[2021-05-29] MEDS ORDERED: VANCOMYCIN 1 GRAM (PRE-DOCKED) 1,000 MG/250 ML BAG IVPB ONE (20:08)
[2021-05-29] MEDS ORDERED: ENOXAPARIN NA (PORCINE) 60 MG/0.6 ML DISP.SYRIN SQ ONE (20:09)
[2021-05-29] MEDS: SODIUM CHLORIDE 1,000 ML IV SCH (20:25)
[2021-05-29] MEDS: ENOXAPARIN NA (PORCINE) 40 MG/0.4 ML DISP.SYRIN SQ SCH (20:25)
[2021-05-29] MEDS: FAMOTIDINE 20 MG/50 ML IVPB 20 MG/50 ML MG IVPB SCH (22:49)
[2021-05-29] MEDS ORDERED: FAMOTIDINE 20 MG/50 ML IVPB 20 MG/50 ML MG IVPB ONE (22:49)
[2021-05-30] MEDS: MAG HYDROX/AL HYDROX/SIMETH -MYLANTA- ORAL SUSPENSION PO SCH ×2 (00:45→11:39)
[2021-05-30] MEDS ORDERED: PIPERACILLIN/TAZOB 3.375 GM 3.375 GM/50 ML BAG IVPB ONE (01:33)
[2021-05-30] MEDS ORDERED: ACETAMINOPHEN 325 MG TABLET (FP) ONE (01:33)
[2021-05-30] MEDS: ACETAMINOPHEN 325 MG TABLET (FP) PO PRN (01:41)
[2021-05-30] MEDS: PIPERACILLIN/TAZOB 3.375 GM 3.375 GM in DEXTROSE 5%-WATER - 50 ML IVPB SCH ×3 (01:42→18:05)
[2021-05-30] MEDS ORDERED: PIPERACILLIN/TAZOB 3.375 GM 3.375 GM in DEXTROSE 5%-WATER - 50 ML IVPB SCH (02:00)
[2021-05-30] MEDS: MAG HYDROX/AL HYDROX/SIMETH 30 ML UNIT-DOSE CUP PO SCH ×3 (06:52→18:05)
[2021-05-30 09:37] LABS: BASO % 0.5 % (0-2.0); EOS % 0.1 % (0-4.5); HEMATOCRIT 30.6 % (32.4-45.2); HEMOGLOBIN 9.9 GM/dL (10.7-15.3); LYMPH % 37.6 % (8-40); MCH 23.5 pg (25.7-33.7); MCHC 32.3 g/dl (32.0-36.0); MEAN CELL VOLUME 72.9 fl (80-96); MEAN PLT VOLUME 8.4 fl (7.5-11.1); NEUT % 56.8 % (42.8-82.8); PLATELET COUNT 246 10^3/uL (134-434); RBC 4.19 M/mm3 (3.60-5.2); RDW 17.4 % (11.6-15.6); WHITE BLOOD COUNT 4.4 K/mm3 (4.0-10.0)
[2021-05-30] MEDS ORDERED: PIPERACILLIN/TAZOBACTAM 3.375 GM VIAL IVPB ONE ×2 (09:52→17:46)
[2021-05-30] MEDS ORDERED: DEXTROSE 5%-WATER - 50 ML IVPB ONE ×2 (09:53→17:46)
[2021-05-30] MEDS: ENOXAPARIN NA (PORCINE) 40 MG/0.4 ML DISP.SYRIN SQ SCH (09:54)
[2021-05-30 10:00] LABS: CALCIUM 7.5 mg/dL (8.5-10.1)
[2021-05-30 10:01] LABS: ALBUMIN 2.7 g/dl (3.4-5.0); BLOOD UREA NITROGEN 4.1 mg/dL (7-18); MAGNESIUM 1.6 mg/dL (1.8-2.4)
[2021-05-30 10:04] LABS: CREATININE 0.8 mg/dL (0.55-1.3)
[2021-05-30 10:05] LABS: BILIRUBIN,TOTAL 0.2 mg/dL (0.2-1); TOT PROT 6.6 g/dl (6.4-8.2)
[2021-05-30] MEDS: FAMOTIDINE 20 MG/50 ML IVPB 20 MG/50 ML MG IVPB SCH ×2 (10:29→22:03)
[2021-05-30] MEDS ORDERED: POTASSIUM CHLORIDE TABS 20 MEQ TABLET.ER (FP) PO ONE (10:56)
[2021-05-30] MEDS ORDERED: MAGNESIUM SULF 50% (8.12 MEQ/2 ML-1 GM VIAL) IVPB ONE (10:56)
[2021-05-30] MEDS ORDERED: PT OWN MED DRAWER 7, Y5N ONE ×2 (15:53→21:59)
[2021-05-30] MEDS: guaiFENesin/D-M SUGAR-FREE/ACLHOL-FREE 118 ML BOTTLE PO PRN ×2 (15:57→22:03)
[2021-05-30] MEDS: SODIUM CHLORIDE 1,000 ML IV SCH (18:56)
[2021-05-31] MEDS ORDERED: PIPERACILLIN/TAZOBACTAM 3.375 GM VIAL IVPB ONE ×2 (01:16→09:03)
[2021-05-31] MEDS ORDERED: DEXTROSE 5%-WATER - 50 ML IVPB ONE ×3 (01:17→14:51)
[2021-05-31] MEDS: SODIUM CHLORIDE 1,000 ML IV SCH ×3 (01:32→18:49)
[2021-05-31] MEDS: PIPERACILLIN/TAZOB 3.375 GM 3.375 GM in DEXTROSE 5%-WATER - 50 ML IVPB SCH ×2 (01:33→09:08)
[2021-05-31] MEDS: MAG HYDROX/AL HYDROX/SIMETH 30 ML UNIT-DOSE CUP PO SCH ×5 (01:33→23:44)
[2021-05-31] MEDS: guaiFENesin/D-M SUGAR-FREE/ACLHOL-FREE 118 ML BOTTLE PO PRN ×2 (06:27→21:07)
[2021-05-31] MEDS: ENOXAPARIN NA (PORCINE) 40 MG/0.4 ML DISP.SYRIN SQ SCH (09:08)
[2021-05-31] MEDS: FAMOTIDINE 20 MG/50 ML IVPB 20 MG/50 ML MG IVPB SCH ×2 (10:00→21:07)
[2021-05-31] MEDS ORDERED: POTASSIUM CHLORIDE TABS 20 MEQ TABLET.ER (FP) PO ONE (11:42)
[2021-05-31] MEDS ORDERED: CEFTRIAXONE 1 GM in DEXTROSE 5%-WATER - 50 ML IVPB ONE ×2 (12:45→14:45)
[2021-05-31] MEDS ORDERED: cefTRIAXone SODIUM 1 GM VIAL ONE (14:51)
[2021-05-31] MEDS ORDERED: PT OWN MED DRAWER 7, Y5N ONE (21:26)
[2021-06-01] MEDS ORDERED: PT OWN MED DRAWER 7, Y5N ONE ×2 (06:08→20:57)
[2021-06-01] MEDS: guaiFENesin/D-M SUGAR-FREE/ACLHOL-FREE 118 ML BOTTLE PO PRN ×3 (06:12→21:03)
[2021-06-01] MEDS: MAG HYDROX/AL HYDROX/SIMETH 30 ML UNIT-DOSE CUP PO SCH ×3 (06:12→17:23)
[2021-06-01 08:25] LABS: BASO % 0.7 % (0-2.0); EOS % 2.2 % (0-4.5); HEMATOCRIT 30.8 % (32.4-45.2); HEMOGLOBIN 9.7 GM/dL (10.7-15.3); LYMPH % 42.8 % (8-40); MCH 23.4 pg (25.7-33.7); MCHC 31.4 g/dl (32.0-36.0); MEAN CELL VOLUME 74.4 fl (80-96); MEAN PLT VOLUME 8.2 fl (7.5-11.1); MONO % 5.9 % (3.8-10.2); NEUT % 48.4 % (42.8-82.8); PLATELET COUNT 222 10^3/uL (134-434); RBC 4.14 M/mm3 (3.60-5.2); RDW 17.6 % (11.6-15.6); WHITE BLOOD COUNT 5.6 K/mm3 (4.0-10.0)
[2021-06-01 08:36] LABS: BLOOD UREA NITROGEN 5.3 mg/dL (7-18); CALCIUM 7.9 mg/dL (8.5-10.1)
[2021-06-01 08:37] LABS: ALBUMIN 2.7 g/dl (3.4-5.0); MAGNESIUM 2.1 mg/dL (1.8-2.4)
[2021-06-01 08:39] LABS: CREATININE 0.6 mg/dL (0.55-1.3); PHOSPHOROUS 2.8 mg/dL (2.5-4.9)
[2021-06-01 08:41] LABS: BILIRUBIN,TOTAL 0.2 mg/dL (0.2-1); TOT PROT 6.8 g/dl (6.4-8.2)
[2021-06-01] MEDS ORDERED: cefTRIAXone SODIUM 1 GM VIAL ONE (09:24)
[2021-06-01] MEDS ORDERED: DEXTROSE 5%-WATER - 50 ML IVPB ONE (09:25)
[2021-06-01] MEDS: ENOXAPARIN NA (PORCINE) 40 MG/0.4 ML DISP.SYRIN SQ SCH (09:42)
[2021-06-01] MEDS: FAMOTIDINE 20 MG/50 ML IVPB 20 MG/50 ML MG IVPB SCH ×2 (09:43→21:03)
[2021-06-01] MEDS: SODIUM CHLORIDE 1,000 ML IV SCH (09:44)
[2021-06-01] MEDS: CEFTRIAXONE 1 GM in DEXTROSE 5%-WATER - 50 ML IVPB SCH (09:44)
[2021-06-01] MEDS: ACETAMINOPHEN 325 MG TABLET (FP) PO PRN (22:27)
[2021-06-02] MEDS: MAG HYDROX/AL HYDROX/SIMETH 30 ML UNIT-DOSE CUP PO SCH ×4 (00:40→18:11)
[2021-06-02] MEDS ORDERED: cefTRIAXone SODIUM 1 GM VIAL ONE (09:12)
[2021-06-02] MEDS ORDERED: PT OWN MED DRAWER 7, Y5N ONE ×3 (09:12→18:11)
[2021-06-02] MEDS ORDERED: DEXTROSE 5%-WATER - 50 ML IVPB ONE (09:13)
[2021-06-02] MEDS: FAMOTIDINE 20 MG/50 ML IVPB 20 MG/50 ML MG IVPB SCH ×2 (09:26→22:14)
[2021-06-02] MEDS: ENOXAPARIN NA (PORCINE) 40 MG/0.4 ML DISP.SYRIN SQ SCH (09:27)
[2021-06-02] MEDS: SODIUM CHLORIDE 1,000 ML IV SCH ×2 (09:27→20:25)
[2021-06-02] MEDS: CEFTRIAXONE 1 GM in DEXTROSE 5%-WATER - 50 ML IVPB SCH (10:31)
[2021-06-02] MEDS: guaiFENesin/D-M SUGAR-FREE/ACLHOL-FREE 118 ML BOTTLE PO PRN ×2 (11:20→18:11)
[2021-06-02] MEDS: DOXYCYCLINE HYCLATE 100 MG CAPSULE PO SCH ×2 (11:20→18:11)
[2021-06-02 12:00] LABS: BASO % 1.1 % (0-2.0); EOS % 1.7 % (0-4.5); HEMATOCRIT 30.4 % (32.4-45.2); HEMOGLOBIN 9.7 GM/dL (10.7-15.3); MCH 23.3 pg (25.7-33.7); MEAN PLT VOLUME 8.4 fl (7.5-11.1); MONO % 5.6 % (3.8-10.2); NEUT % 58.6 % (42.8-82.8); PLATELET COUNT 291 10^3/uL (134-434); RBC 4.17 M/mm3 (3.60-5.2); RDW 17.1 % (11.6-15.6); WHITE BLOOD COUNT 4.5 K/mm3 (4.0-10.0)
[2021-06-02 12:30] LABS: ALBUMIN 2.9 g/dl (3.4-5.0); BLOOD UREA NITROGEN 4.3 mg/dL (7-18); CALCIUM 8.3 mg/dL (8.5-10.1); MAGNESIUM 2.1 mg/dL (1.8-2.4)
[2021-06-02] MEDS: ACETAMINOPHEN 325 MG TABLET (FP) PO PRN (12:32)
[2021-06-02 12:33] LABS: CREATININE 0.6 mg/dL (0.55-1.3); PHOSPHOROUS 2.7 mg/dL (2.5-4.9)
[2021-06-02 12:35] LABS: BILIRUBIN,TOTAL 0.1 mg/dL (0.2-1); TOT PROT 7.2 g/dl (6.4-8.2)
[2021-06-03] MEDS: MAG HYDROX/AL HYDROX/SIMETH 30 ML UNIT-DOSE CUP PO SCH ×4 (01:18→18:07)
[2021-06-03] MEDS: SODIUM CHLORIDE 1,000 ML IV SCH ×2 (06:40→18:46)
[2021-06-03] MEDS ORDERED: DEXTROSE 5%-WATER - 50 ML IVPB ONE (09:16)
[2021-06-03] MEDS ORDERED: cefTRIAXone SODIUM 1 GM VIAL ONE (09:16)
[2021-06-03] MEDS: ENOXAPARIN NA (PORCINE) 40 MG/0.4 ML DISP.SYRIN SQ SCH (09:32)
[2021-06-03] MEDS: CEFTRIAXONE 1 GM in DEXTROSE 5%-WATER - 50 ML IVPB SCH (09:32)
[2021-06-03] MEDS: FAMOTIDINE 20 MG/50 ML IVPB 20 MG/50 ML MG IVPB SCH ×2 (09:32→23:56)
[2021-06-03] MEDS: guaiFENesin/D-M SUGAR-FREE/ACLHOL-FREE 118 ML BOTTLE PO PRN ×3 (09:33→20:25)
[2021-06-03] MEDS: DOXYCYCLINE HYCLATE 100 MG CAPSULE PO SCH ×2 (09:33→18:07)
[2021-06-03] MEDS: ACETAMINOPHEN 325 MG TABLET (FP) PO PRN (11:05)
[2021-06-03] MEDS ORDERED: PT OWN MED DRAWER 7, Y5N ONE ×2 (20:19→20:35)
[2021-06-04] MEDS: MAG HYDROX/AL HYDROX/SIMETH 30 ML UNIT-DOSE CUP PO SCH ×3 (00:41→12:59)
[2021-06-04] MEDS: ACETAMINOPHEN 325 MG TABLET (FP) PO PRN ×2 (00:41→09:24)
[2021-06-04 06:23] VITALS: BP 122/87; PULSE 63; TEMP 97.8
[2021-06-04] MEDS: ENOXAPARIN NA (PORCINE) 40 MG/0.4 ML DISP.SYRIN SQ SCH (09:24)
[2021-06-04] MEDS: DOXYCYCLINE HYCLATE 100 MG CAPSULE PO SCH (09:25)
[2021-06-04] MEDS: CEFTRIAXONE 1 GM in DEXTROSE 5%-WATER - 50 ML IVPB SCH (12:16)
[2021-06-04] MEDS: FAMOTIDINE 20 MG/50 ML IVPB 20 MG/50 ML MG IVPB SCH (12:46)
[2021-06-04] MEDS: guaiFENesin/D-M SUGAR-FREE/ACLHOL-FREE 118 ML BOTTLE PO PRN (12:59)
== END 2021-06-04 18:20 | disposition home or self-care (01) | DRG 137 ==
LOC: JER 13:07 → JERBED 18:04 → J6S 05-30 03:44
PROVIDERS: ADMIT Internal Medicine
PROC: XW033G6 Introduction of REGN-COV2 Monoclonal Antibody into Peripheral Vein, Percutaneous Approach, New Technology Group 6 (ICD-10-PCS; principal; 2021-05-29)
DX: U07.1 COVID-19 (principal); E66.9 Obesity, unspecified; Z68.34 Body mass index [BMI] 34.0-34.9, adult; A08.39 Other viral enteritis; R78.81 Bacteremia; J12.82 Pneumonia due to coronavirus disease 2019
CPT/HCPCS: 36415; 80053; 82550; 82728; 83036; 83605; 83615; 83690; 83735; 84100; 85025; 85379; 86140; 87040; 87045; 87046; 87324; 87449; 99285-25; M0243; Q0243

== ENCOUNTER 2024-08-08 10:20 | Emergency (ER) | payer OTHER ==
[2024-08-08 12:25] VITALS: BP 149/105; PULSE 77; RESP 16; TEMP 99; BMI 36.0
== END 2024-08-08 11:31 | disposition home or self-care (01) ==
LOC: FER 10:20
DX: S70.12XA Contusion of left thigh, initial encounter (principal); X58.XXXA Exposure to other specified factors, initial encounter; Y99.0 Civilian activity done for income or pay
CPT/HCPCS: 99283-25